=== PATIENT | female | born 1960 | race Caucasian/White ===

== ENCOUNTER 2019-01-03 07:32 | Inpatient (IN) | payer BC ==
[2019-01-03] MEDS ORDERED: IPRATROPIUM/ALBUTEROL 0.5-2.5 MG/3 ML AMPUL NEB ONE ×3 (07:41→10:37)
[2019-01-03] MEDS ORDERED: METHYLPREDNISOLONE INJ 125 MG/2 ML SDV ONE (07:48)
[2019-01-03] MEDS ORDERED: METHYLPREDNISOLONE INJ 125 MG/2 ML SDV IV ONE (07:48)
--- NOTE | 2019-01-03 07:50 | ER Document Report ---
ED Respiratory Problem - General Chief Complaint: Shortness Of Breath Stated Complaint: DIFFICULTY BREATHING Time Seen by Provider: 01/03/19 07:48 Primary Care Provider: BHARAT BRIONES MD [ACTIVE STAFF] - Follow up as needed Notes: 58-year-old female patient emergency department brought straight back after presenting for severe shortness of breath. Patient has been treated on and off for approximately 3 months for "bronchitis". No prior history of COPD. No smoking. Does work in a rather jenn and dirty environment but otherwise no significant risk factors. Patient states that she has been on breathing tr eatments, steroids and antibiotics but has only gotten worse. Patient seen on arrival as oxygen saturations at triage were 70% on room air and patient was a bit lethargic. No chest pain. Mild headache. TRAVEL OUTSIDE OF THE [place] IN LAST 30 DAYS: No - HPI Patient complains to provider of: Short of breath Duration: Continuous, Worse/persistent Severity: Severe Pain Level: Denies Short of Breath: Severe Associated symptoms: None - Related Data Allergies/Adverse Reactions: No Known Allergies Allergy (Verified 01/03/19 07:38) Past Medical History - General Information source: Patient - Social History Smoking Status: Never Smoker Frequency of alcohol use: None Drug Abuse: None Lives with: Family, Spouse/Significant other Family History: Reviewed & Not Pertinent - Medical History Medical History: Negative - Past Medical History Cardiac Medical History: Denies: Hx Heart Attack, Hx Hypertension Pulmonary Medical History: Denies: Hx Asthma Neurological Medical History: Denies: Hx Cerebrovascular Accident, Hx Seizures GI Medical History: Denies: Hx Hepatitis, Hx Hiatal Hernia, Hx Ulcer Infectious Medical History: Denies: Hx Hepatitis Past Surgical History: Denies: Hx Hysterectomy, Hx Mastectomy, Hx Open Heart Surgery, Hx Pacemaker Review of Systems - Review of Systems Notes: Constitutional: denies: Chills, Diaphoresis, Fever, Malaise, Weakness EENT: denies: Eye discharge, Blurred vision, Tearing, Double vision, Nose congestion, Nose discharge, Throat swelling, Mouth pain Cardiovascular: denies: Palpitations, Heart racing, Orthopnea, Dyspnea, Chest pain Respiratory: Complaining of cough, wheeze, shortness of breath, difficulty breathing. Gastrointestinal: denies: Abdominal pain, Diarrhea, Nausea, Vomiting, Black stools, bright red blood in stool Genitourinary: denies: Burning, Dysuria, Discharge, Frequency, Flank pain, Hematuria Musculoskeletal: denies: Joint pain, Joint swelling, Muscle pain, Muscle stiffness, back pain Hematologic/Lymphatic: denies: Anemia, Easy bleeding, Easy bruising, Blood clots Neurological/Psychological: denies: Confusion, Dementia, Depression, Loss of consciousness Skin: No lesions, no masses, no skin breakdown, no abscesses Physical Exam - Vital signs Vitals: Resp Pulse Ox 21 H 91 L 01/03/19 07:55 01/03/19 07:55 Interpretation: Tachycardic, Hypoxic, Tachypneic - Notes Notes: Significant work of breathing with respiratory distress - General General appearance: Appears well, Alert - HEENT Head: Normocephalic, Atraumatic Eyes: Normal Pupils: PERRL - Respiratory Respiratory status: Respiratory distress, Labored, Retractions, Tachypnea, Tripod position Chest status: Nontender Breath sounds: Decreased air movement, Wheezing Chest palpation: Normal - Cardiovascular Rhythm: Tachycardia Heart sounds: Normal auscultation Murmur: No - Abdominal Inspection: Normal Distension: No distension Bowel sounds: Normal Tenderness: Nontender Organomegaly: No organomegaly - Back Back: Normal, Nontender - Extremities General upper extremity: Normal inspection, Nontender, Normal color, Normal ROM, Normal temperature General lower extremity: Normal inspection, Nontender, Normal color, Normal ROM, Normal temperature, Normal weight bearing. No: Letty's sign - Neurological Neuro grossly intact: Yes Cognition: Normal Orientation: AAOx4 Sundeep Coma Scale Eye Opening: Spontaneous Sundeep Coma Scale Verbal: Oriented Sundeep Coma Scale Motor: Obeys Commands Sundeep Coma Scale Total: 15 Speech: Normal Motor strength normal: LUE, RUE, LLE, RLE Sensory: Normal - Psychological Associated symptoms: Normal affect, Normal mood - Skin Skin Temperature: Warm Skin Moisture: Dry Skin Color: Normal Course - Re-evaluation Re-evalutation: 01/03/19 10:36 Patient seen immediately on arrival. Patient when severe respiratory distress. Placed on oxygen nonrebreather and oxygen level came up to about 94%. In line breathing treatment given. Respiratory page. Patient placed on BiPAP. Bedside ABG performed. Dr. Flynn performed ABG blood draw and interpreted the results. PH is 7.28 with PCO2 of 49 and PO2 of 63. CTA performed. No obvious pulmonary embolism. At this time started on steroids. Will need antibiotics. Will need ICU versus stepdown admission. Consulted hospitalist. Agrees to admission at this time. 01/03/19 10:37 01/03/19 10:38 Laboratory 01/03/19 01/03/19 01/03/19 07:40 07:40 07:40 WBC 10.5 RBC 4.47 Hgb 13.3 Hct 39.4 MCV 88 MCH 29.7 MCHC 33.7 RDW 14.2 H Plt Count 282 Seg Neutrophils % 83.6 H Lymphocytes % 6.2 L Monocytes % 7.0 Eosinophils % 2.6 Basophils % 0.6 Absolute Neutrophils 8.8 H Absolute Lymphocytes 0.7 Absolute Monocytes 0.7 Absolute Eosinophils 0.3 Absolute Basophils 0.1 Carbonic Acid HCO3/H2CO3 Ratio ABG pH ABG pCO2 ABG pO2 ABG HCO3 ABG Total CO2 ABG O2 Saturation ABG Base Excess FiO2 Sodium 140.7 Potassium 3.8 Chloride 107 Carbon Dioxide 23 Anion Gap 11 BUN 10 Creatinine 0.57 Est GFR ( Amer) > 60 Est GFR (Non-Af Amer) > 60 Glucose 133 H Lactic Acid Calcium 9.6 Total Bilirubin 0.4 Direct Bilirubin 0.2 Neonat Total Bilirubin Not Reportable Neonat Direct Bilirubin Not Reportable Neonat Indirect Bili Not Reportable AST 30 ALT 34 Alkaline Phosphatase 58 Creatine Kinase 94 CK-MB (CK-2) 0.60 Troponin I < 0.012 Total Protein 7.4 Albumin 4.5 01/03/19 01/03/19 07:46 07:55 WBC RBC Hgb Hct MCV MCH MCHC RDW Plt Count Seg Neutrophils % Lymphocytes % Monocytes % Eosinophils % Basophils % Absolute Neutrophils Absolute Lymphocytes Absolute Monocytes Absolute Eosinophils Absolute Basophils Carbonic Acid 1.48 H HCO3/H2CO3 Ratio 15:1 ABG pH 7.28 L ABG pCO2 49.2 H ABG pO2 63.3 L ABG HCO3 22.8 ABG Total CO2 24.3 ABG O2 Saturation 89.4 L ABG Base Excess -4.2 FiO2 15L Sodium Potassium Chloride Carbon Dioxide Anion Gap BUN Creatinine Est GFR ( Amer) Est GFR (Non-Af Amer) Glucose Lactic Acid 1.3 Calcium Total Bilirubin Direct Bilirubin Neonat Total Bilirubin Neonat Direct Bilirubin Neonat Indirect Bili AST ALT Alkaline Phosphatase Creatine Kinase CK-MB (CK-2) Troponin I Total Protein Albumin Chest X-Ray 01/03/19 07:49 IMPRESSION: NO ACUTE RADIOGRAPHIC FINDING IN THE CHEST. Chest/Abdomen CTA 01/03/19 07:56 IMPRESSION: Negative examination for pulmonary embolism. - Vital Signs Vital signs: Temp Pulse Resp BP Pulse Ox 31 H 176/88 H 91 L 01/03/19 09:36 01/03/19 09:36 01/03/19 09:36 - Laboratory Result Diagrams: 01/03/19 07:40 01/03/19 07:40 Laboratory results interpreted by me: 01/03/19 01/03/19 01/03/19 07:40 07:40 07:46 RDW 14.2 H Seg Neutrophils % 83.6 H Lymphocytes % 6.2 L Absolute Neutrophils 8.8 H Carbonic Acid 1.48 H ABG pH 7.28 L ABG pCO2 49.2 H ABG pO2 63.3 L ABG O2 Saturation 89.4 L Glucose 133 H Critical Care Note - Critical Care Note Total time excluding time spent on procedures (mins): 60 Comments: Hypoxia, respiratory distress, gas evaluation interpretation Discharge - Discharge Clinical Impression: Acute respiratory failure with hypoxia Acute bronchitis Qualifiers: Bronchitis organism: unspecified organism Qualified Code(s): J20.9 - Acute bronchitis, unspecified Condition: Fair Disposition: ADMITTED INPATIENT Admitting Provider: Harleen (Hospitalist) Unit Admitted: ICU Referrals: BHARAT BRIONES MD [ACTIVE STAFF] - Follow up as needed
[2019-01-03 08:10] LABS: ALANINE AMINOTRANSFERASE 34 U/L (9-52); ALBUMIN 4.5 g/dL (3.5-5.0); ALKALINE PHOSPHATASE 58 U/L (38-126); ANION GAP 11 (5-19); ASPARTATE AMINO TRANSFERASE 30 U/L (14-36); BILIRUBIN,DIRECT 0.2 mg/dL (0.0-0.4); BILIRUBIN,TOTAL 0.4 mg/dL (0.2-1.3); BLOOD UREA NITROGEN 10 mg/dL (7-20); CALCIUM 9.6 mg/dL (8.4-10.2); CARBON DIOXIDE 23 mmol/L (22-30); CHLORIDE 107 mmol/L (98-107); CREATINE KINASE 94 U/L (30-135); GLUCOSE 133 mg/dL (75-110); POTASSIUM 3.8 mmol/L (3.6-5.0); SODIUM 140.7 mmol/L (137-145); TOTAL PROTEIN 7.4 g/dL (6.3-8.2)
[2019-01-03 08:21] LABS: ABSOLUTE BASOPHILS # (AUTO) 0.1 10^3/uL (0.0-0.2); ABSOLUTE EOSINOPHILS # (AUTO) 0.3 10^3/uL (0.0-0.6); ABSOLUTE LYMPHOCYTES (AUTO) 0.7 10^3/uL (0.5-4.7); ABSOLUTE MONOCYTES (AUTO) 0.7 10^3/uL (0.1-1.4); ABSOLUTE NEUT (AUTO) 8.8 10^3/uL (1.7-8.2); BASOPHILS % (AUTO) 0.6 % (0-2); EOSINOPHILS % (AUTO) 2.6 % (0-6); HEMATOCRIT 39.4 % (36.0-47.0); HEMOGLOBIN 13.3 g/dL (12.0-15.5); LYMPHOCYTES % (AUTO) 6.2 % (13-45); MEAN CORPUSCULAR HEMOGLOBIN 29.7 pg (27.0-33.4); MEAN CORPUSCULAR HGB CONC 33.7 g/dL (32.0-36.0); MEAN CORPUSCULAR VOLUME 88 fl (80-97); PLATELET COUNT 282 10^3/uL (150-450); RED BLOOD COUNT 4.47 10^6/uL (3.72-5.28); RED CELL DISTRIBUTION WIDTH 14.2 % (11.5-14.0); SEGMENTED NEUTROPHILS % (AUTO) 83.6 % (42-78); TOTAL CELLS COUNTED % (AUTO) 100 %; WHITE BLOOD COUNT 10.5 10^3/uL (4.0-10.5)
[2019-01-03 08:22] LABS: TROPONIN I < 0.012 ng/mL
--- NOTE | 2019-01-03 08:28 | RADIOLOGY REPORT (SQ) ---
EXAM DESCRIPTION: CHEST SINGLE VIEW COMPLETED DATE/TIME: 01/03/2019 8:02 am REASON FOR STUDY: sob COMPARISON: None. EXAM PARAMETERS: NUMBER OF VIEWS: One view. TECHNIQUE: Single frontal radiographic view of the chest acquired. RADIATION DOSE: NA LIMITATIONS: None. FINDINGS: LUNGS AND PLEURA: No opacities, masses or pneumothorax. No pleural effusion. MEDIASTINUM AND HILAR STRUCTURES: No masses. Contour normal. HEART AND VASCULAR STRUCTURES: Heart normal in size. Normal vasculature. BONES: No acute findings. HARDWARE: None in the chest. OTHER: No other significant finding. IMPRESSION: NO ACUTE RADIOGRAPHIC FINDING IN THE CHEST. TECHNICAL DOCUMENTATION: JOB ID: [id number] [employer]- All Rights Reserved Reading location - IP/workstation name: [email or web address]
[2019-01-03 08:57] LABS: ARTERIAL BLOOD BASE EXCESS -4.2 mmol/L; ARTERIAL BLOOD H2CO3 1.48 mmol/L (1.05-1.35); ARTERIAL BLOOD HCO3 22.8 mmol/L (20-24); ARTERIAL BLOOD O2 SATURATION 89.4 % (94-98); ARTERIAL BLOOD PCO2 49.2 mmHg (35-45); ARTERIAL BLOOD PH 7.28 (7.35-7.45); ARTERIAL BLOOD PO2 63.3 mmHg (80-100); ARTERIAL BLOOD TOTAL CO2 24.3 mmol/L (21-25)
[2019-01-03 08:58] LABS: ARTERIAL BLOOD FIO2 15L
--- NOTE | 2019-01-03 09:46 | RADIOLOGY REPORT (SQ) ---
EXAM DESCRIPTION: CTA CHEST COMPLETED DATE/TIME: 01/03/2019 9:34 am REASON FOR STUDY: sob COMPARISON: Same day chest radiograph TECHNIQUE: CT scan of the chest performed using helical scanning technique with dynamic intravenous contrast injection. Images reviewed with lung, soft tissue and bone windows. Reconstructed coronal and sagittal MPR images reviewed. Additional 3 dimensional post-processing performed to develop Maximal Intensity Projection images (HI P). All images stored on PACS. All CT scanners at this facility use dose modulation, iterative reconstruction, and/or weight based d osing when appropriate to reduce radiation dose to as low as reasonably achievable (ALARA). [facility]: Dose Right [facility]: CareDose [facility]: Dose Right [facility]: Teradose 4D [facility]: [employer] CONTRAST TYPE AND DOSE: contrast/concentration: Isovue 350.00 mg/ml; Total Contrast Delivered: 67.0 ml; Total Saline Delivered: 80.0 ml Contrast bolus optimized for the pulmonary arteries. Not diagnostic for the aorta. RENAL FUNCTION: None required. The patient is less than 50 years old. RADIATION DOSE: CT Rad equipment meets quality standard of care and radiation dose reduction techniq ues were employed. CTDIvol: 14.7 - 39.7 mGy. DLP: 603 mGy-cm. . LIMITATIONS: None. FINDINGS: LUNGS AND PLEURA: No masses, infiltrates, or pneumothorax. No pleural effusions or pleura l calcifications. AORTA AND GREAT VESSELS: No aneurysm. Contrast bolus not optimized for the aorta. HEART: No pericardial effusion. No significant coronary artery calcifications. PULMONARY ARTERIES: No emboli visualized in the main pulmonary arteries or the segmental branches. HILAR AND MEDIASTINAL STRUCTURES: No identified masses or abnormal nodes. HARDWARE: None in the chest. UPPER ABDOMEN: No significant findings. Limited exam. THYROID AND OTHER SOFT TISSUES: No masses. No adenopathy. BONES: No acute or significant finding. 3D MIPS: Confirm above findings. OTHER: No other significant finding. IMPRESSION: Negative examination for pulmonary embolism. COMMENT: Quality ID # [id number]: Final reports with documentation of one or more dose reduction techniques (e.g., Automated exposure control, adjustment of the mA and/or kV according to patient size, use of iterative reconstruction technique) TECHNICAL DOCUMENTATION: JOB ID: [id number] [employer]- All Rights Reserved Reading location - IP/workstation name: [email or web address]
--- NOTE | 2019-01-03 09:47 | EKG REPORT ---
SEVERITY:- BORDERLINE ECG - SINUS RHYTHM BORDERLINE T ABNORMALITIES, ANT-LAT LEADS : Confirmed by: Kavita Clemente 03-Jan-2019 09:47:32
[2019-01-03] MEDS ORDERED: ACETAMINOPHEN 325 MG TABLET PO ONE (10:33)
[2019-01-03] MEDS ORDERED: ALPRAZOLAM 0.25 MG TABLET PO ONE (10:34)
[2019-01-03] MEDS ORDERED: ALBUTEROL SULFATE 0.083% NEB 2.5 MG/3 ML AMPUL NEB PRN ×3 (10:56→15:40)
--- NOTE | 2019-01-03 11:41 | PDOC H&P ---
History of Present Illness Patient complains of: SOB, cough History of Present Illness: TIMOTHY BUTLER is a 58 year old female with no significant PMH aside triglyceridemia and bouts of bronchitis who presented with cough and increasing SOB. Patient denies prior diagnosis of COPD or asthma. She reports she has been dealing with some post nasal drip and non productive cough in the past 3-4 months associated with some SOB and wheezing. She says she was treated for acute bronchitis previously. She reports she has been having increasing SOB and cough in the past 2 days. She called EMS this morning due to worsening and was found to be hypoxic when she came in at 70% on room air. She was also noted to have significant wheezing. She denies chest pain. She says she used to smoke up to half pack a day when she was in her 20s but has quit since then. Chest CTA was done and was normal. Past Medical History Cardiac Medical History: Denies: Myocardial Infarction, Hypertension Pulmonary Medical History: Denies: Asthma Neurological Medical History: Denies: Seizures GI Medical History: Denies: Hepatitis, Hiatal Hernia Hematology: Denies: Anemia, Sickle Cell Disease Past Surgical History Past Surgical History: Denies: Amputation, Hysterectomy, Mastectomy, Pacemaker Social History Lives with: Family, Spouse/Significant other Smoking Status: Never Smoker Family History Family History: Reviewed & Not Pertinent Parental Family History Reviewed: Yes - dad-pancreatic cancer Children Family History Reviewed: No Sibling(s) Family History Reviewed.: No Medication/Allergy Home Medications: Fenofibrate Nanocrystallized [Tricor 145 mg Tablet] 145 mg PO QHS 01/03/19 Multivitamin [Multiple Vitamins] 1 tab PO DAILY 01/03/19 Allergies/Adverse Reactions: No Known Allergies Allergy (Verified 01/03/19 07:38) Review of Systems All systems: reviewed and no additional remarkable complaints except as stated - as mentioned in HPI Physical Exam Vital Signs: Temp Pulse Resp BP Pulse Ox 31 H 176/88 H 91 L 01/03/19 09:36 01/03/19 09:36 01/03/19 09:36 Intake & Output 01/02/19 01/03/19 01/04/19 06:59 06:59 06:59 Weight 138 lb General appearance: PRESENT: no acute distress, well-developed, well-nourished Head exam: PRESENT: atraumatic, normocephalic Eye exam: PRESENT: conjunctiva pink, EOMI, PERRLA. ABSENT: scleral icterus Ear exam: PRESENT: normal external ear exam Neck exam: ABSENT: carotid bruit, JVD, lymphadenopathy, thyromegaly Respiratory exam: PRESENT: wheezes. ABSENT: rales, rhonchi Cardiovascular exam: PRESENT: RRR. ABSENT: diastolic murmur, rubs, systolic murmur Pulses: PRESENT: normal dorsalis pedis pul GI/Abdominal exam: PRESENT: normal bowel sounds, soft. ABSENT: distended, gua rding, mass, organolmegaly, rebound, tenderness Rectal exam: PRESENT: deferred Neurological exam: PRESENT: alert, awake, oriented to person, oriented to place, oriented to time, oriented to situation, CN II-XII grossly intact. ABSENT: motor sensory deficit Results Laboratory Results: 01/03/19 07:40 01/03/19 07:40 01/03/19 01/03/19 01/03/19 07:40 07:40 07:46 WBC 10.5 RBC 4.47 Hgb 13.3 Hct 39.4 MCV 88 MCH 29.7 MCHC 33.7 RDW 14.2 H Plt Count 282 Seg Neutrophils % 83.6 H Lymphocytes % 6.2 L Monocytes % 7.0 Eosinophils % 2.6 Basophils % 0.6 Absolute Neutrophils 8.8 H Absolute Lymphocytes 0.7 Absolute Monocytes 0.7 Absolute Eosinophils 0.3 Absolute Basophils 0.1 Carbonic Acid 1.48 H HCO3/H2CO3 Ratio 15:1 ABG pH 7.28 L ABG pCO2 49.2 H ABG pO2 63.3 L ABG HCO3 22.8 ABG O2 Saturation 89.4 L ABG Base Excess -4.2 FiO2 15L Sodium 140.7 Potassium 3.8 Chloride 107 Carbon Dioxide 23 Anion Gap 11 BUN 10 Creatinine 0.57 Est GFR ( Amer) > 60 Est GFR (Non-Af Amer) > 60 Glucose 133 H Lactic Acid Calcium 9.6 Total Bilirubin 0.4 AST 30 ALT 34 Alkaline Phosphatase 58 Total Protein 7.4 Albumin 4.5 01/03/19 07:55 WBC RBC Hgb Hct MCV MCH MCHC RDW Plt Count Seg Neutrophils % Lymphocytes % Monocytes % Eosinophils % Basophils % Absolute Neutrophils Absolute Lymphocytes Absolute Monocytes Absolute Eosinophils Absolute Basophils Carbonic Acid HCO3/H2CO3 Ratio ABG pH ABG pCO2 ABG pO2 ABG HCO3 ABG O2 Saturation ABG Base Excess FiO2 Sodium Potassium Chloride Carbon Dioxide Anion Gap BUN Creatinine Est GFR ( Amer) Est GFR (Non-Af Amer) Glucose Lactic Acid 1.3 Calcium Total Bilirubin AST ALT Alkaline Phosphatase Total Protein Albumin 01/03/19 01/03/19 07:40 07:40 Creatine Kinase 94 CK-MB (CK-2) 0.60 Troponin I < 0.012 Impressions: Chest X-Ray 01/03/19 07:49 IMPRESSION: NO ACUTE RADIOGRAPHIC FINDING IN THE CHEST. Chest/Abdomen CTA 01/03/19 07:56 IMPRESSION: Negative examination for pulmonary embolism. Assessment and Plan - Diagnosis (1) Acute respiratory failure with hypoxia and hypercapnia Is this a current diagnosis for this admission?: Yes Plan: Likely from an exacerbation of obstructive lung disease. She denies prior diagnosis of COPD or asthma. Will have patient on BIPAP. Will order a screening spirometry as well. (2) Acute exacerbation of chronic obstructive airways disease Is this a current diagnosis for this admission?: Yes Plan: Will start IV steroids, azithromycin and scheduled breathing treatments. - Time Time Spent with patient: 25-34 minutes
[2019-01-03] MEDS: IPRATROPIUM/ALBUTEROL 0.5-2.5 MG/3 ML AMPUL NEB SCH ×3 (12:20→21:28)
[2019-01-03] MEDS: AZITHROMYCIN 250 MG TABLET PO SCH (12:20)
[2019-01-03] MEDS: METHYLPREDNISOLONE INJ 40 MG/1 ML SDV IV SCH ×2 (14:23→21:42)
[2019-01-03] MEDS ORDERED: ACETAMINOPHEN 325 MG TABLET PO PRN (15:36)
[2019-01-03] MEDS ORDERED: HYDRALAZINE HCL INJ/PF 20 MG/1 ML SDV IV PRN (15:36)
[2019-01-04] MEDS: IPRATROPIUM/ALBUTEROL 0.5-2.5 MG/3 ML AMPUL NEB SCH ×6 (00:17→20:19)
[2019-01-04] MEDS: METHYLPREDNISOLONE INJ 40 MG/1 ML SDV IV SCH ×3 (05:22→21:34)
[2019-01-04] MEDS: AZITHROMYCIN 250 MG TABLET PO SCH (09:15)
[2019-01-04] MEDS: FONDAPARINUX SODIUM INJ 2.5 MG/0.5 ML DISP.SYRIN SUBCUT SCH (09:15)
--- NOTE | 2019-01-04 13:39 | PDOC PROGRESS REPORT ---
Subjective Progress Note for:: 01/04/19 Subjective:: This is a 58 year old female with no significant PMH aside triglyceridemia and bouts of bronchitis who presented with cough, wheezing and increasing SOB. Patient denies prior diagnosis of COPD or asthma. She was admitted for an exacerbation of a likely COPD vs asthma. No acute event overnight. She has significantly improved. She says her [id number] has also improved. She was weaned off BIPAP overnight. She is currently saturating well on nasal cannula. She has bilateral wheezing this morning but this has improved from yesterday. Reason For Visit: ACUTE RESPIRATORY FAILURE,POSSIBLE COPD EXACERBATI Physical Exam Vital Signs: Temp Pulse Resp BP Pulse Ox 97.3 F 96 22 H 128/68 H 96 01/04/19 11:31 01/04/19 13:23 01/04/19 13:23 01/04/19 11:31 01/04/19 13:23 Intake & Output 01/03/19 01/04/19 01/05/19 06:59 06:59 06:59 Intake Total 118 368 Output Total 1100 300 Balance -982 68 Weight 142 lb 10.225 oz General appearance: PRESENT: no acute distress, well-developed, well-nourished Head exam: PRESENT: atraumatic, normocephalic Eye exam: PRESENT: conjunctiva pink, EOMI, PERRLA. ABSENT: scleral icterus Ear exam: PRESENT: normal external ear exam Mouth exam: PRESENT: moist, tongue midline Neck exam: ABSENT: carotid bruit, JVD, lymphadenopathy, thyromegaly Respiratory exam: PRESENT: wheezes. ABSENT: rales, rhonchi Cardiovascular exam: PRESENT: RRR. ABSENT: diastolic murmur, rubs, systolic murmur Pulses: PRESENT: normal dorsalis pedis pul GI/Abdominal exam: PRESENT: normal bowel sounds, soft. ABSENT: distended, guarding, mass, organolmegaly, rebound, tenderness Rectal exam: PRESENT: deferred Extremities exam: PRESENT: full ROM. ABSENT: calf tenderness, clubbing, pedal edema Neurological exam: PRESENT: alert, awake, oriented to person, oriented to place, oriented to time, oriented to situation, CN II-XII grossly intact. ABSENT: motor sensory deficit Results Laboratory Results: 01/03/19 07:40 01/03/19 07:40 01/03/19 01/03/1919 07:40 07:40 07:40 Creatine Kinase 94 CK-MB (CK-2) 0.60 Troponin I < 0.012 NT-Pro-B Natriuret Pep 138 Impressions: Chest X-Ray 01/03/19 07:49 IMPRESSION: NO ACUTE RADIOGRAPHIC FINDING IN THE CHEST. Chest/Abdomen CTA 01/03/19 07:56 IMPRESSION: Negative examination for pulmonary embolism. Assessment and Plan - Diagnosis (1) Acute respiratory failure with hypoxia and hypercapnia Is this a current diagnosis for this admission?: Yes Plan: Likely from an exacerbation of obstructive lung disease. She denies prior diagnosis of COPD or asthma. Will have patient on BIPAP. Will order a screening spirometry as well. 01/04: She has significantly improved. Weaned off BIPAP overnight. She is currently saturating well on nasal cannula. She has bilateral wheezing this morning but this has improved from yesterday. (2) Acute exacerbation of chronic obstructive airways disease Is this a current diagnosis for this admission?: Yes Plan: Continue IV solumedrol. Continue breathing treatments. Bedside spirometry today. - Time Time Spent with patient: 15-24 minutes
[2019-01-04] MEDS: FENOFIBRATE NANOCRYSTALLIZED 145 MG TABLET PO SCH (21:34)
[2019-01-05] MEDS: IPRATROPIUM/ALBUTEROL 0.5-2.5 MG/3 ML AMPUL NEB SCH ×6 (00:47→21:32)
[2019-01-05] MEDS: METHYLPREDNISOLONE INJ 40 MG/1 ML SDV IV SCH (05:09)
[2019-01-05] MEDS: FONDAPARINUX SODIUM INJ 2.5 MG/0.5 ML DISP.SYRIN SUBCUT SCH (08:40)
[2019-01-05] MEDS: AZITHROMYCIN 250 MG TABLET PO SCH (09:55)
--- NOTE | 2019-01-05 11:24 | PDOC PROGRESS REPORT ---
Subjective Progress Note for:: 01/05/19 Subjective:: This is a 58 year old female with no significant PMH aside triglyceridemia and bouts of bronchitis who presented with cough, wheezing and increasing SOB. Patient denies prior diagnosis of COPD or asthma. She was admitted for an exacerbation of a likely COPD vs asthma. 01/04: She has significantly improved. She says her breathing has also improved. She was weaned off BIPAP overnight. She is currently saturating well on nasal cannula. She has bilateral wheezing this morning but this has improved from yesterday. 01/05: No acute event overnight. Currently comfortable on nasal cannula. She says she feels like she is close to her baseline. She has minimal wheezing on the bases this morning. Wean off O2 today and will have her ambulate. Reason For Visit: ACUTE RESPIRATORY FAILURE,POSSIBLE COPD EXACERBATI Physical Exam Vital Signs: Temp Pulse Resp BP Pulse Ox 97.3 F 87 24 H 133/73 H 97 01/05/19 07:37 01/05/19 09:04 01/05/19 09:04 01/05/19 07:37 01/05/19 09:04 Intake & Output 01/04/19 01/05/19 01/06/19 06:59 06:59 06:59 Intake Total 118 605 Output Total 1100 2500 Balance -982 -1895 Weight 142 lb 10.225 oz 143 lb 1.28 oz General appearance: PRESENT: no acute distress, well-developed, well-nourished Head exam: PRESENT: atraumatic, normocephalic Eye exam: PRESENT: conjunctiva pink, EOMI, PERRLA. ABSENT: scleral icterus Ear exam: PRESENT: normal external ear exam Mouth exam: PRESENT: moist, tongue midline Neck exam: ABSENT: carotid bruit, JVD, lymphadenopathy, thyromegaly Respiratory exam: PRESENT: wheezes. ABSENT: rales, rhonchi Cardiovascular exam: PRESENT: RRR. ABSENT: diastolic murmur, rubs, systolic murmur Pulses: PRESENT: normal dorsalis pedis pul GI/Abdominal exam: PRESENT: normal bowel sounds, soft. ABSENT: distended, guarding, mass, organolmegaly, rebound, tenderness Rectal exam: PRESENT: deferred Neurological exam: PRESENT: alert, awake, oriented to person, oriented to place, oriented to time, oriented to situation, CN II-XII grossly intact. ABSENT: motor sensory deficit Results Laboratory Results: 01/03/19 07:40 01/03/19 07:40 01/03/19 01/03/19 01/03/19 07:40 07:40 07:40 Creatine Kinase 94 CK-MB (CK-2) 0.60 Troponin I < 0.012 NT-Pro-B Natriuret Pep 138 Impressions: Chest X-Ray 01/03/19 07:49 IMPRESSION: NO ACUTE RADIOGRAPHIC FINDING IN THE CHEST. Chest/Abdomen CTA 01/03/19 07:56 IMPRESSION: Negative examination for pulmonary embolism. Assessment and Plan - Diagnosis (1) Acute respiratory failure with hypoxia and hypercapnia Is this a current diagnosis for this admission?: Yes Plan: Likely from an exacerbation of obstructive lung disease. She denies prior diagnosis of COPD or asthma. Will have patient on BIPAP. Will order a screening spirometry as well. 01/04: She has significantly improved. Weaned off BIPAP overnight. She is currently saturating well on nasal cannula. She has bilateral wheezing this morning but this has improved from yesterday. 01/05: Currently comfortable on nasal cannula. She says she feels like she is close to her baseline. She has minimal wheezing on the bases this morning. Wean off O2 today and will have her ambulate. (2) Acute exacerbation of chronic obstructive airways disease Is this a current diagnosis for this admission?: Yes Plan: Continue IV solumedrol. Continue breathing treatments. 01/05: Reduce steroids. PFT report pending. Discontinue antibiotics. - Time Time Spent with patient: 15-24 minutes
[2019-01-05] MEDS: BENZONATATE 100 MG CAPSULE PO PRN ×2 (14:58→21:37)
[2019-01-05] MEDS: FLUTICASONE NASAL SPRAY 50 MCG/SPRY 120 SPRAY/16 GM NASL SCH ×2 (14:58→21:37)
[2019-01-05] MEDS: PREDNISONE 20 MG TABLET PO SCH (17:25)
[2019-01-05] MEDS ORDERED: FLUTICASONE NASAL SPRAY 50 MCG/SPRY 120 SPRAY/16 GM NASL SCH (18:00)
[2019-01-05] MEDS: FENOFIBRATE NANOCRYSTALLIZED 145 MG TABLET PO SCH (21:36)
[2019-01-06] MEDS: IPRATROPIUM/ALBUTEROL 0.5-2.5 MG/3 ML AMPUL NEB SCH ×4 (00:22→12:03)
[2019-01-06] MEDS: BENZONATATE 100 MG CAPSULE PO PRN (05:50)
[2019-01-06] MEDS: FONDAPARINUX SODIUM INJ 2.5 MG/0.5 ML DISP.SYRIN SUBCUT SCH (07:34)
--- NOTE | 2019-01-06 11:00 | Pulmonary Function Test ---
Pulmonary Function Test Date of Procedure:: 01/06/19 INDICATION:: Dyspnea Referring Provider: Dr. Leon Public Improvement Inspector: Afua Cardona DIE PRESS OPERATOR - Report Spirometry: FVC 2.38 L 76% postbronchodilator 2.58 L 82% FEV1 1.67 L 68% postbronchodilator 1.61 L 74% FEV1/FVC % 70 postbronchodilator 70 predicted 79 FEF 25-75% 1.71 72% postbronchodilator 1.81 76% Impression: Restrictive defect is suggested but cannot be diagnosed on the basis of spirometry alone if clinically indicated complete pulmonary function test would be warranted. (Restrictive defect may mask the degree of obstruction)
[2019-01-06] MEDS: AZITHROMYCIN 250 MG TABLET PO SCH (12:09)
[2019-01-06] MEDS: PREDNISONE 20 MG TABLET PO SCH (12:10)
[2019-01-06] MEDS: FLUTICASONE NASAL SPRAY 50 MCG/SPRY 120 SPRAY/16 GM NASL SCH (12:10)
[2019-01-06 13:12] VITALS: BP 198/102
--- NOTE | 2019-01-06 13:18 | PDOC DISCHARGE SUMMARY ---
General - Admit/Disc Date/PCP Admission Date/Primary Care Provider: 01/03/19 11:26 Discharge Date: 01/06/19 - Discharge Diagnosis (1) Acute respiratory failure with hypoxia and hypercapnia Is this a current diagnosis for this admission?: Yes (2) Acute exacerbation of chronic obstructive airways disease Is this a current diagnosis for this admission?: Yes - Additional Information Resuscitation Status: Full Code Discharge Diet: As Tolerated Discharge Activity: Activity As Tolerated, Balance Activity w/Rest Prescriptions: Albuterol Sulfate [Proair HFA Inhalation Aerosol 8.5 gm MDI] 1 puff IH Q6HP PRN #1 mdi PRN Reason: Benzonatate [Tessalon Perles 100 mg Capsule] 100 mg PO Q8HP PRN #12 capsule PRN Reason: Budesonide/Formoterol Fumarate [Symbicort Hfa 160-4.5 Mcg Inhaler 6 gm] 1 puff IH Q12 #1 inhaler Fluticasone Propionate [Flonase Nasal Gladstone 50 Mcg/Gladstone 16 gm] 1 spray NASL Q12 #1 spray.pump Pantoprazole Sodium [Protonix [address] Tablet] 40 mg PO QAM #14 tablet. Prednisone [Deltasone 20 mg Tablet] 40 mg PO BID 5 Days #20 tablet Home Medications: Fenofibrate Nanocrystallized [Tricor 145 mg Tablet] 145 mg PO QHS 01/03/19 Multivitamin [Multiple Vitamins] 1 tab PO DAILY 01/03/19 Albuterol Sulfate [Proair HFA Inhalation Aerosol 8.5 gm MDI] 1 puff IH Q6HP PRN #1 mdi 01/06/19 Benzonatate [Tessalon Perles 100 mg Capsule] 100 mg PO Q8HP PRN #12 capsule 01/06/19 Budesonide/Formoterol Fumarate [Symbicort Hfa 160-4.5 Mcg Inhaler 6 gm] 1 puff IH Q12 #1 inhaler 01/06/19 Fluticasone Propionate [Flonase Nasal [place] 50 Mcg/Gladstone 16 gm] 1 spray NASL Q12 #1 spray.pump 01/06/19 Pantoprazole Sodium [Protonix [address] Tablet] 40 mg PO QAM #14 tablet. 01/06/19 Prednisone [Deltasone 20 mg Tablet] 40 mg PO BID 5 Days #20 tablet 01/06/19 History of Present Illness History of Present Illness: TIMOTHY BUTLER is a 58 year old female with no significant PMH aside triglyceridemia and bouts of bronchitis who presented with cough and increasing SOB. Patient denies prior diagnosis of COPD or asthma. She reports she has been dealing with some post nasal drip and non productive cough in the past 3-4 months associated with some SOB and wheezing. She says she was treated for acute bronchitis previously. She reports she has been having increasing SOB and cough in the past 2 days. She called EMS this morning due to worsening and was found to be hypoxic when she came in at 70% on room air. She was also noted to have significant wheezing. She denies chest pain. She says she used to smoke up to half pack a day when she was in her 20s but has quit since then. Chest CTA was done and was normal. Hospital Course Hospital Course: This is a 58 year old female with no significant PMH aside triglyceridemia and prior bouts of bronchitis who presented with cough, wheezing and increasing SOB. Patient denies prior diagnosis of COPD or asthma. She was admitted for an exacerbation of a likely COPD vs asthma. CTA chest was normal. She was started on IV steroids and scheduled breathing treatments and was initially requiring BIPAP. 01/04: She has significantly improved. She says her breathing has also improved. She was weaned off BIPAP overnight. She is currently saturating well on nasal cannula. She has bilateral wheezing this morning but this has improved from yesterday. 01/05: No acute event overnight. Currently comfortable on nasal cannula. She says she feels like she is close to her baseline. She has minimal wheezing on the bases this morning. Wean off O2 today and will have her ambulate. 01/06: Patient was weaned off O2. She has been ambulating on room air with no acute issues or SOB. Wheezing has completely resolved. She was also started on flonase as she complained of nasal congestion and post nasal drip. She had a screening PFT which showed restriction. Discussed PFT with Dr. Sam who deem there is a likelihood of moderate persistent asthma in the appropriate clinical context as she jones da post bronchodilator FEV1 of 74%. She will be discharged on Symbicort and 5 more days of oral prednisone as well as a rescue albuterol inhaler. She will follow up with Dr. Sam outpatient for a full/formal pulmonary function testing. Physical Exam Vital Signs: Temp Pulse Resp BP Pulse Ox 98.4 F 86 18 198/102 H 98 01/06/19 13:10 01/06/19 13:10 01/06/19 13:10 01/06/19 13:10 01/06/19 13:10 Intake & Output 01/05/19 01/06/19 01/07/19 06:59 06:59 06:59 Intake Total 605 724 Output Total 2500 3500 Balance -1892 -2749 Weight 143 lb 1.28 oz 143 lb 15.39 oz General appearance: PRESENT: no acute distress, well-developed, well-nourished Head exam: PRESENT: atraumatic, normocephalic Eye exam: PRESENT: conjunctiva pink, EOMI, PERRLA. ABSENT: scleral icterus Ear exam: PRESENT: normal external ear exam Mouth exam: PRESENT: moist, tongue midline Neck exam: ABSENT: carotid bruit, JVD, lymphadenopathy, thyromegaly Respiratory exam: PRESENT: clear to auscultation tina. ABSENT: rales, rhonchi, wheezes Cardiovascular exam: PRESENT: RRR. ABSENT: diastolic murmur, rubs, systolic murmur Pulses: PRESENT: normal dorsalis pedis pul GI/Abdominal exam: PRESENT: normal bowel sounds, soft. ABSENT: distended, guarding, mass, organolmegaly, rebound, tenderness Rectal exam: PRESENT: deferred Neurological exam: PRESENT: alert, awake, oriented to person, oriented to place, oriented to time, oriented to situation, CN II-XII grossly intact. ABSENT: motor sensory deficit Results Laboratory Results: 01/03/19 07:40 01/03/19 07:40 01/03/19 01/03/19 01/03/19 07:40 07:40 07:40 Creatine Kinase 94 CK-MB (CK-2) 0.60 Troponin I < 0.012 NT-Pro-B Natriuret Pep 138 Impressions: Chest X-Ray 01/03/19 07:49 IMPRESSION: NO ACUTE RADIOGRAPHIC FINDING IN THE CHEST. Chest/Abdomen CTA 01/03/19 07:56 IMPRESSION: Negative examination for pulmonary embolism. Qualifiers - * PATIENT BEING DISCHARGED WITH ANY OF THE FOLLOWING DIAGNOSIS: No
== END 2019-01-06 13:30 | disposition home or self-care (01) | DRG 189 ==
LOC: ER 07:32 → EH 11:26 → 3S 15:29
PROVIDERS: ADMIT Internal Medicine; ATTEND Internal Medicine
DX: J96.02 Acute respiratory failure with hypercapnia (principal); J44.1 Chronic obstructive pulmonary disease with (acute) exacerbation; J96.01 Acute respiratory failure with hypoxia; Z87.891 Personal history of nicotine dependence
CPT/HCPCS: 36415; 71045; 71275; 80053; 81332; 82550; 82553; 82803; 83605; 83880; 84484; 85025; 87040; 93005; 93010; 94060; 94640; 94660; 96374; 99291; J1652; J2920; J2930; J3490; J7512; J7620